=== PATIENT | male | born 1970 | race Two or more races ===

== ENCOUNTER 2020-09-21 16:38 | Outpatient (REF) | payer MEDICARE, MEDICAID, SELFPAY | END 2020-09-21 16:39 | disposition home or self-care (01) | LOC: HO.LAB 16:38 | PROVIDERS: Visit Provider Internal Medicine | DX: Z20.828 Contact with and (suspected) exposure to other viral communicable diseases (principal) | CPT/HCPCS: C9803; U0003 ==

== ENCOUNTER 2020-10-20 13:42 | Outpatient (REF) | payer MEDICARE, MEDICAID, SELFPAY | END 2020-10-20 13:43 | disposition home or self-care (01) | LOC: HO.LAB 13:42 | PROVIDERS: Visit Provider Internal Medicine | DX: Z20.822 Contact with and (suspected) exposure to COVID-19 (principal) | CPT/HCPCS: 36415; C9803; U0003 ==

== ENCOUNTER 2020-10-31 15:59 | Outpatient (REF) | payer MEDICARE, MEDICAID, SELFPAY | END 2020-10-31 16:00 | disposition home or self-care (01) | LOC: HO.LAB 15:59 | PROVIDERS: Visit Provider Internal Medicine | DX: Z20.822 Contact with and (suspected) exposure to COVID-19 (principal) | CPT/HCPCS: 36415; C9803; U0003 ==

== ENCOUNTER 2021-09-21 16:25 | Emergency (ER) | payer MEDICARE, MEDICAID, SELFPAY ==
--- NOTE | ~2021-09-21 | US_ITS ---
EXAMINATION: US VENOUS ULTRASOUND WITH DOPPLER LOWER EXTREMITY, BILATERAL CLINICAL INFORMATION: Right lower extremity DVT COMPARISON: None TECHNIQUE: Ultrasound of the deep veins is performed from the hip to the calf with compression sonography and color and pulse Doppler assessment. Spectral analysis with color-flow imaging is performed. FINDINGS: RIGHT: Nonocclusive deep venous thrombus is noted in the posterior tibial vein. The proximal common femoral vein, superficial femoral vein, popliteal veins are patent. There is no significant popliteal fossa cyst. LEFT: There is normal venous compression and respiratory variation and augmented flow. The visualized common femoral vein, superficial femoral vein, profunda femoral vein, popliteal vein, and the trifurcation region shows no evidence of deep venous thrombosis. There is no significant popliteal fossa cyst. US/US venous duplex LE BI IMPRESSION: Nonocclusive deep venous thrombus is noted in the right posterior tibial vein. No DVT in the left lower extremity.
[2021-09-21 16:31] VITALS: BP 128/83; PULSE 76; RESP 20; TEMP 36.3; O2SAT 98; BMI 26.9
[2021-09-21 17:25] LABS: Basophils Absolute Auto 0.1 X10*3/uL (0.0-0.2); Basophils Percent Auto 0.7 % (0-2); Eosinophils Absolute Auto 0.5 X10*3/uL (0.0-0.4); Eosinophils Percent Auto 6.7 % (0-4); Hemoglobin 12.6 g/dl (14.0-18.0); Imm Gran Abs Auto 0.01 X10*3/uL (0.00-0.03); Imm Gran Pct Auto 0.1 % (0.0-0.4); Lymphocytes Absolute Auto 3.1 X10*3/uL (1.2-4.9); Lymphocytes Percent Auto 41.2 % (20-40); MANUAL DIFF FLAG NO; Mean Corpuscular HGB Conc 31.5 g/dl (31.0-36.0); Mean Corpuscular Hemoglobin 27.5 pg (27.0-33.0); Mean Corpuscular Volume 87.3 fL (80.0-98.0); Mean Platelet Volume 8.7 fL (9.4-12.4); Monocytes Absolute Auto 0.5 X10*3/uL (0.1-1.2); Monocytes Percent Auto 5.9 % (2-11); Neutrophils Absolute Auto 3.4 x10*3/uL (2.0-8.3); Neutrophils Percent Auto 45.4 % (45-73); Platelet Count 297 X10*3/uL (160-400); Red Blood Count 4.58 X10*6/uL (4.60-5.80); White Blood Count 7.6 X10*3/uL (4.8-10.8)
[2021-09-21 17:31] LABS: Prothrombin Time 11.6 SEC (9.9-13.0)
--- NOTE | 2021-09-21 19:43 | ED.GENADULT ---
HPI - General Adult General Chief complaint: General Medical Stated complaint: blood clot in leg per dr Time Seen by Provider: 09/21/21 19:32 Source: patient Mode of arrival: ambulatory Limitations: no limitations History of Present Illness HPI narrative: this is a 51 years old male came in for evaluation of right lower extremities pain and swelling. Patient had a history of DVT in the right leg patient was on Eliquis for 3 months now he is not taking any anticoagulation, patient was sent for outpatient right lower extremities venous Doppler yesterday and he got called to go to the emergency department for evaluation of blood clot in the right lower extremities. Patient declined any recent travel or prolonged immobilization, no shortness of breath, no chest pain. Related Data Previous Rx's Medication Instructions Recorded apixaban 5 mg (74 tabs) tablets in 5 mg PO BID #74 ea 09/21/21 a dose pack (Eliquis DVT-PE Treat 30D Start) Allergies Allergy/AdvReac Type Severity Reaction Status Date / Time No Known Allergies Allergy Verified 09/21/21 16:36 Review of Systems Review of Systems: All other systems are reviewed and are negative Constitutional: Reports as per HPI and Reports no additional constitutional complaints Eyes: Reports as per HPI and Reports no additional eye complaints Reports system reviewed and no additional complaints, except as documented Cardiovascular: Reports as per HPI and Reports no additional cardiovascular complaints Respiratory: Reports as per HPI and Reports no additional respiratory complaints Gastrointestinal: Reports as per HPI and Reports no additional gastrointestinal complaints Genitourinary: Reports no additional female genitourinary complaints Musculoskeletal: Reports no additional musculoskeletal complaints Skin/Breast: Reports system reviewed and no additional complaints, except as docu Psychiatric: Reports no additional psychiatric complaints Endocrine: Reports no additional endocrine complaints Hematologic/Lymphatic: Reports no additional hematologic/lymphatic complaints Allergic/Immunologic: Reports no additional allergic/immunologic complaints Reports system reviewed and no additional complaints, except as documented and Reports Abnormal speech present [facility] Social History Social History Advance Directives: No Advance Directives Information Provided: No Physical Exam Vital Signs: Vital Signs: Last Vital Signs Temp 97.4 F 09/21/21 16:31 Pulse 76 09/21/21 16:31 Resp 20 09/21/21 16:31 BP 128/83 09/21/21 16:31 Pulse Ox 98 09/21/21 16:31 BMI result Body Mass Index 26.9 vital signs have been reviewed as appeared to be correct. Blood pressure normal. Heart rate normal. Respiration rate normal. Temperature normal. Oxygen saturation normal. Appearance: Alert. Oriented X3. No acute distress. Head: Normal external exam. Normocephalic. Atraumatic. No Bone signs noted. No raccoon eyes noted Eyes: PERRLA. EOMI. Conjunctiva and sclera normal. Eyelids normal. ENT: TM's Normal. Pharynx normal. Uvula midline. Moist mucous membranes. No trismus noted. No drooling noted. No muffled voice noted. Neck: Normal inspection. Neck supple. FROM. No adenopathy. Thyroid Normal. No meningeal signs. No neck mass noted. CVS: Normal heart rate and rhythm. Heart sound normal. No murmurs noted. Pulses normal throughout. Respiratory: No respiratory distress. Painless inspiration. Breath sounds normal. No wheezes/rales/rhonchi noted. Chest nontender. No accessory muscle usage noted or decreased air movement noted. Abdomen: Soft and nontender. Bowel sounds normal in all 4 quadrants. No distention noted. No organomegaly noted. No visible injury noted. Back: No CVA tenderness. Full range of motion noted. Skin: Skin warm and dry. Normal skin color. Normal skin turgor. No rashes/lesions/lacerations noted. Extremities: No lower extremity edema. No swelling, right calf mild tenderness. No cellulitis, no redness, no hotness. Neuro: Oriented X 3. Cranial nerve exam: II-XII are grossly intact No motor deficit. No sensory deficit. Reflexes normal. Course Course Course Narrative: Assessment and plan. 51-year-old male came in for right lower extremity swelling and pain, patient with a history of DVT, ultrasound showed nonocclusive thrombus in the right posterior tibial vein. Will start the patient on Eliquis and follow up with PCP. Medical Decision Making Lab Data Lab results reviewed: Yes I reviewed the patient's lab results. Result diagrams: 09/21/21 17:18 Labs: Lab Results 09/21/21 09/21/21 Range/Units 17:18 17:18 WBC 7.6 (4.8-10.8) X10*3/uL RBC 4.58 L (4.60-5.80) X10*6/uL Hgb 12.6 L (14.0-18.0) g/dl Hct 40.0 L (42.0-52.0) % MCV 87.3 (80.0-98.0) fL MCH 27.5 (27.0-33.0) pg MCHC 31.5 (31.0-36.0) g/dl RDW 13.0 (11.0-16.0) % Plt Count 297 (160-400) X10*3/uL MPV 8.7 L (9.4-12.4) fL Immature Gran % (Auto) 0.1 (0.0-0.4) % Neut % (Auto) 45.4 (45-73) % Lymph % (Auto) 41.2 H (20-40) % [facility] % (Auto) 5.9 (2-11) % Eos % (Auto) 6.7 H (0-4) % Baso % (Auto) 0.7 (0-2) % Lymph # (Auto) 3.1 (1.2-4.9) X10*3/uL [facility] # (Auto) 0.5 (0.1-1.2) X10*3/uL Eos # (Auto) 0.5 H (0.0-0.4) X10*3/uL Baso # (Auto) 0.1 (0.0-0.2) X10*3/uL Abs Immat Gran (auto) 0.01 (0.00-0.03) X10*3/uL Absolute Neuts (auto) 3.4 (2.0-8.3) x10*3/uL Absolute Nucleated RBC 0.000 (0.0-0.012) X10*3/uL Nucleated RBC % (auto) 0.0 (0.0-0.2) /100WBC PT 11.6 (9.9-13.0) SEC INR 1.0 (0.9-1.1) Imaging Data Right lower extremities ultrasound: Attestation: I personally reviewed and interpreted this imaging study as follows: Radiologist's impression: Nonocclusive deep venous thrombus is noted in the right posterior tibial vein. Discharge Plan Discharge Clinical Impression: DVT (deep venous thrombosis) Qualifiers: DVT location: lower extremity Affected thrombotic vein of extremity: tibial Chronicity: unspecified Laterality: right Qualified Code(s): I82.441 - Acute embolism and thrombosis of right tibial vein Patient Disposition: Home, Self-Care Instructions: Deep Vein Thrombosis (ED) Prescriptions: New Eliquis DVT-PE Treat 30D Start 5 mg (74 tabs) tablets,dose pack 5 mg PO BID Qty: 74 RF: 0 Referrals: Physician,Unknown J [Primary Care Provider] - 2 days
== END 2021-09-22 01:54 | disposition home or self-care (01) ==
PROVIDERS: Emergency Provider Emergency Medicine
DX: I82.441 Acute embolism and thrombosis of right tibial vein (principal); M79.661 Pain in right lower leg; M79.89 Other specified soft tissue disorders; Z86.718 Personal history of other venous thrombosis and embolism
CPT/HCPCS: 36415; 85025; 85610; 93970; 99283; 99284